=== PATIENT | male | born 1975 | race Caucasian/White ===

== ENCOUNTER 2018-09-15 11:27 | Emergency (ER) | payer OTHER, SELFPAY ==
[2018-09-15 11:36] VITALS: BP 163/103; PULSE 80; RESP 18; TEMP 36.8; O2SAT 98; BMI 27.5
--- NOTE | 2018-09-15 11:48 | ED.ABDPAIN ---
HPI - Abdominal Pain General Chief Complaint: Abdominal Pain Stated Complaint: right side abdominal pain Time Seen by Provider: 09/15/18 11:38 Source: patient Mode of arrival: ambulatory Limitations: no limitations History of Present Illness HPI narrative: 43-year-old nonsmoking, otherwise healthy male presents with chief complaint of sudden onset right flank pain yesterday. He denies any provocation or palliation. He denies any radiation. He denies dysuria, frequency or urgency. He denies any fever or chills. He denies nausea, vomiting or diarrhea. He denies any history of the same. He denies injury or any significant change in activity complaint: flank pain Onset (ago): day(s) Pain Consistency: constant Location: R flank Severity: mild Quality: stabbing Radiation: none Migration to: no migration Relieving factors: nothing Exacerbating factors: nothing Associated symptoms: denies other symptoms Related Data Previous Rx's Medication Instructions Recorded ketorolac 10 mg PO Q6H PRN #14 tab 09/15/18 Allergies Allergy/AdvReac Type Severity Reaction Status Date / Time From Vicodin Allergy Mild ITCHING Uncoded 09/15/18 11:38 Review of Systems Review of Systems All systems reviewed & are unremarkable except as noted in HPI and below Constitutional Denies chills, Denies fever(s), Denies lethargy and Denies weakness Eyes Denies change in vision, Denies eye discharge, Denies irritation and Denies loss of vision ENT Ears, Nose, Mouth, and Throat: Denies change in voice, Denies neck pain and Denies sore throat Cardiovascular Denies chest pain, Denies irregular heart rhythm, Denies lightheadedness, Denies palpitations, Denies dyspnea, Denies dyspnea on exertion and Denies orthopnea Respiratory Denies cough, Denies dyspnea, Denies dyspnea on exertion and Denies wheezing Gastrointestinal Gastrointestinal: Reports abdominal pain, Denies change in bowel habits, Denies diarrhea, Denies nausea and Denies vomiting Genitourinary Denies hematuria, Denies flank pain, Denies urinary incontinence and Denies urinary urgency Musculoskeletal Denies neck pain Integumentary/Breasts Denies pruritus, Denies erythema, Denies rash and Denies wounds Neurologic Denies confusion, Denies loss of vision and Denies weakness Psychiatric Denies anxiety, Denies confusion, Denies depression, Denies homicidal ideation and Denies suicidal ideation Endocrine Denies palpitations Hematologic/Lymphatic Denies easy bruising Allergic/Immunologic Denies wheezing PFSH Social History Smoking Status: Never smoker Exam Narrative Exam Narrative: 43-year-old male resting comfortably, in no obvious distress Initial Vital Signs Initial Vital Signs: Vital Signs Temperature 98.2 F 09/15/18 11:36 Pulse Rate 80 09/15/18 11:36 Respiratory Rate 18 09/15/18 11:36 Blood Pressure 163/103 H 09/15/18 11:36 Pulse Oximetry 98 09/15/18 11:36 Const General: cooperative and well developed Nutritional Appearance: well nourished Orientation: alert, awake, oriented x3 and not confused HENMT Head: normocephalic and atraumatic Ears: external ears normal and TM's normal bilaterally Nose: external nose normal and No nasal discharge Face and sinus: sinuses nontender, face symmetric, no sinus tenderness and No dry mucous membranes Mouth: oral mucosae normal and moist mucous membranes Teeth and gingiva: dentition normal Throat: tonsils normal and uvula midline Chest Chest: normal inspection of the chest Resp Effort & Inspection: normal respiratory effort, able to speak in complete sentences, no respiratory distress and no use of accessory muscles Auscultation: clear to auscultation bilaterally, no rales, no rhonchi and no wheezes GI Inspection: non-distended Palpation: soft, no hepatosplenomegaly, No guarding, No pulsatile mass and No tender Auscultation: normal bowel sounds Skin General: no rashes or lesions noted, No jaundice and No petechiae Course Orders Ordered: ED Orders 09/15/18 11:52 US renal complete Stat 09/15/18 12:02 Basic Metabolic Panel Stat Complete Blood Count AUTO DIFF Stat 09/15/18 12:35 XR acute abdomen series Stat Vital Signs - 8 hr 09/15/18 12:42 09/15/18 13:46 Pulse Rate 66 58 L Respiratory Rate 16 16 Blood Pressure 134/88 Blood Pressure [Left Arm] 131/85 Pulse Oximetry 99 98 MDM - Abdominal Pain Differential Diagnosis Differential diagnosis: Likely abdominal pain, acute appendicitis, calculus of kidney, constipation and diverticulitis Lab Data Attestation: I reviewed the patient's lab results. Result diagrams: 09/15/18 12:02 09/15/18 12:02 Lab Results 09/15/18 09/15/18 Range/Units 12:02 12:02 WBC 5.1 (4.5-11.0) X10^3/uL RBC 4.53 (4.5-5.9) X10^6/uL Hgb 13.9 (13.5-17.5) g/dL Hct 40.2 L (41-53) % MCV 88.7 (80-100) fL MCH 30.7 (26-34) PG MCHC 34.6 (30-36) % RDW 13.1 (11.6-14.8) % Plt Count 175 (150-400) X10^3/uL Neut % (Auto) 52.1 (50-75) % Lymph % (Auto) 33.2 (25-40) % [place] % (Auto) 8.0 (3-14) % Eos % (Auto) 5.5 H (2-4) % Baso % (Auto) 1.2 (0-2) % Neut # (Auto) 2600 L (4300-3502) /uL Sodium 141 (137-145) mmol/L Potassium 4.3 (3.4-5.1) mmol/L Chloride 103 (98-107) mmol/L Carbon Dioxide 26 (22-32) mmol/L BUN 16 (9-20) mg/dL Creatinine 1.00 (0.66-1.25) mg/dL Estimated GFR > 60.0 (>60) mL/min BUN/Creatinine Ratio 16.0 (6-22) Glucose 96 (70-100) mg/dL Calcium 9.4 (8.4-10.2) mg/dL Point of care testing: Urine Dip Bedside Urine Glucose Negative Bedside Urine Bilirubin - Negative Bedside Urine Ketone - Negative Urine Specific [place] 1.010 Bedside Urine Occult Blood - Negative Bedside Urine pH 7.0 Bedside Urine Protein - Negative Bedside Urine Urobilinogen - Negative Bedside Urine Nitrite - Negative Bedside Urine Leukocytes - Negative Esterase Imaging Data Renal US: Radiologist's impression: [address] [address] Ultrasound Report Signed Patient: Darrin Renner [facility]#: [id number] : 1975Acct:[id number] Age/Sex: 43 / MDate of Service: 09/15/18 Loc: ED Accession Number: [id number] Procedure: US renal complete Ordering Provider: Young Deal D.O. PROCEDURE: US RENAL COMPLETE INDICATIONS: RIGHT FLANK PAIN TECHNIQUE: Real-time scanning was performed of the kidneys and bladder, with image documentation. COMPARISON: None. FINDINGS: Kidneys: Kidneys are normal in size. Right kidney measures 12.6 cm long; left kidney measures 12.3 cm long. Right renal cortical thickness is 1.2 cm; left renal cortical thickness is 1.5 cm. Renal cortical echotexture is normal. No hydronephrosis or shadowing nephrolithiasis. No suspicious solid mass lesions. Bladder: Pre-void bladder volume is 2011 mL. Post-void residual is 0 mL. Pre-void images demonstrate no intraluminal masses or stones. On pre-void images, the left ureteral jet was noted with color Doppler interrogation. (Of note, ureteral jets may not be detectable in up to 25% of cases due to insufficient differences in specific gravity between ureteral and bladder urine). Miscellaneous: No free pelvic fluid. IMPRESSION: Unremarkable appearance of the kidneys. No hydronephrosis or shadowing renal calculi. Dictated by: Arben Owens M.D. on 09/15/2018 at 12:32 Approved by: Arbne Owens M.D. on 09/15/2018 at 12:33 Abdominal x-ray: Radiologist's impression: [place] [address] XRay Report Signed Patient: Darrin Renner [facility]#: [id number] : 1975Acct:[id number] Age/Sex: 43 / MDate of Service: 09/15/18 Loc: ED Accession Number: [id number] Procedure: XR acute abdomen series Ordering Provider: Young Deal D.O. PROCEDURE: XR ACUTE ABDOMEN SERIES INDICATIONS: Abdominal pain, R sided X1 DAY TECHNIQUE: One view chest and two views of the abdomen were acquired. COMPARISON: None. FINDINGS: Surgical changes and devices: None. Chest: Lungs are clear. Heart size is normal. No pleural effusions. No pneumoperitoneum. Abdomen: Bowel gas pattern is abnormal with moderate colonic obstipation. No suspicious calcifications. Visualized solid organ contours appear normal. Bones: No suspicious bony lesions. IMPRESSION: Moderate colonic obstipation, no sign of intestinal obstruction or perforation. Dictated by: Jl Walker M.D. on 09/15/2018 at 13:33 Approved by: Jl Walker M.D. on 09/15/2018 at 13:33 [facility] Narrative Medical decision making narrative: patient has a very benign exam and nonspecific history. Renal calculi initially thought most likely given sudden onset of pain and lack of provocation or palliation but urine showed no red cells and renal ultrasound demonstrated no hydronephrosis. Constipation considered a possibility especially after seeing x-ray however pain is not reproducible on exam. Labs were essentially unremarkable. We did discuss the possibility of a CT scan of abdomen and pelvis to further elucidate but elected to withhold this for now given the low likelihood of a changing the disposition. He was given return precautions which understands completely. He has had his questions answered to his apparent satisfaction Discharge Plan Departure Patient Disposition: Home Clinical Impression: Acute flank pain Discharge Date/Time: 09/15/18 13:47 Interventions: ED Discharge Assessment Last Done: 09/15/18 13:46 Instructions: DI for Flank Pain Activity Restrictions/Additional Instructions: *You have been diagnosed with [ Acute Flank pain, possible kidney stone ] *What to do: *Take medications as directed: Your prescription has been electronically transmitted to [facility] at your request *Follow up with your primary care provider in 2-3 days, call for an appointment. Let them know you were seen in the Emergency Department and that we ask that you be seen in follow up *Return to ER if you should have any new, worsening or concerning symptoms Prescriptions: New ketorolac 10 mg tablet 10 mg PO Q6H PRN (Reason: pain) Qty: 14 RF: 0 Referrals: Jose Courtney ARNP [Primary Care Provider] -
--- NOTE | 2018-09-15 11:52 | DI.US.S_ITS ---
PROCEDURE: US RENAL COMPLETE INDICATIONS: RIGHT FLANK PAIN TECHNIQUE: Real-time scanning was performed of the kidneys and bladder, with image documentation. COMPARISON: None. FINDINGS: Kidneys: Kidneys are normal in size. Right kidney measures 12.6 cm long; left kidney measures 12.3 cm long. Right renal cortical thickness is 1.2 cm; left renal cortical thickness is 1.5 cm. Renal cortical echotexture is normal. No hydronephrosis or shadowing nephrolithiasis. No suspicious solid mass lesions. Bladder: Pre-void bladder volume is 2011 mL. Post-void residual is 0 mL. Pre-void images demonstrate no intraluminal masses or stones. On pre-void images, the left ureteral jet was noted with color Doppler interrogation. (Of note, ureteral jets may not be detectable in up to 25% of cases due to insufficient differences in specific gravity between ureteral and bladder urine). Miscellaneous: No free pelvic fluid. IMPRESSION: Unremarkable appearance of the kidneys. No hydronephrosis or shadowing renal calculi. Dictated by: Arben Owens M.D. on 09/15/2018 at 12:32 Approved by: Arben Owens M.D. on 09/15/2018 at 12:33
[2018-09-15 12:10] LABS: Add Manual Diff / Slide Review NO; Basophils Percent Auto 1.2 % (0-2); Eosinophils Percent Auto 5.5 % (2-4); Hematocrit 40.2 % (41-53); Hemoglobin 13.9 g/dL (13.5-17.5); Lymphocytes Percent Auto 33.2 % (25-40); Mean Corpuscular HGB Conc 34.6 % (30-36); Mean Corpuscular Hemoglobin 30.7 PG (26-34); Mean Corpuscular Volume 88.7 fL (80-100); Neutrophils Absolute Auto 2600 /uL (3000-5900); Neutrophils Percent Auto 52.1 % (50-75); Platelet Count 175 X10^3/uL (150-400); Red Blood Cell Count 4.53 X10^6/uL (4.5-5.9); Red Cell Distribution Width 13.1 % (11.6-14.8); White Blood Cell Count 5.1 X10^3/uL (4.5-11.0)
[2018-09-15 12:19] LABS: Blood Urea Nitrogen 16 mg/dL (9-20); Calcium 9.4 mg/dL (8.4-10.2); Carbon Dioxide 26 mmol/L (22-32); Chloride 103 mmol/L (98-107); Estimated Glomerular Filt Rate > 60.0 mL/min (>60); Glucose 96 mg/dL (70-100); HEMOLYSIS < 15 (0-50); Potassium 4.3 mmol/L (3.4-5.1); Sodium 141 mmol/L (137-145)
--- NOTE | 2018-09-15 12:35 | DI.RAD.S_ITS ---
PROCEDURE: XR ACUTE ABDOMEN SERIES INDICATIONS: Abdominal pain, R sided X1 DAY TECHNIQUE: One view chest and two views of the abdomen were acquired. COMPARISON: None. FINDINGS: Surgical changes and devices: None. Chest: Lungs are clear. Heart size is normal. No pleural effusions. No pneumoperitoneum. Abdomen: Bowel gas pattern is abnormal with moderate colonic obstipation. No suspicious calcifications. Visualized solid organ contours appear normal. Bones: No suspicious bony lesions. IMPRESSION: Moderate colonic obstipation, no sign of intestinal obstruction or perforation. Dictated by: Jl Walker M.D. on 09/15/2018 at 13:33 Approved by: Jl Walker M.D. on 09/15/2018 at 13:33
[2018-09-15 12:42] VITALS: BP 131/85; PULSE 66; RESP 16; O2SAT 99
[2018-09-15 13:46] VITALS: BP 134/88; PULSE 58; RESP 16; O2SAT 98
--- NOTE | 2018-09-15 20:22 | ED_ITS ---
HPI - Abdominal Pain General Chief Complaint: Abdominal Pain Stated Complaint: right side abdominal pain Time Seen by Provider: 09/15/18 11:38 Source: patient Mode of arrival: ambulatory Limitations: no limitations History of Present Illness HPI narrative: 43-year-old nonsmoking, otherwise healthy male presents with chief complaint of sudden onset right flank pain yesterday. He denies any provocation or palliation. He denies any radiation. He denies dysuria, frequency or urgency. He denies any fever or chills. He denies nausea, vomiting or diarrhea. He denies any history of the same. He denies injury or any significant change in activity complaint: flank pain Onset (ago): day(s) Pain Consistency: constant Location: R flank Severity: mild Quality: stabbing Radiation: none Migration to: no migration Relieving factors: nothing Exacerbating factors: nothing Associated symptoms: denies other symptoms Related Data Previous Rx's Medication Instructions Recorded ketorolac 10 mg PO Q6H PRN #14 tab 09/15/18 Allergies Allergy/AdvReac Type Severity Reaction Status Date / Time From Vicodin Allergy Mild ITCHING Uncoded 09/15/18 11:38 Review of Systems Review of Systems All systems reviewed & are unremarkable except as noted in HPI and below Constitutional Denies chills, Denies fever(s), Denies lethargy and Denies weakness Eyes Denies change in vision, Denies eye discharge, Denies irritation and Denies loss of vision ENT Ears, Nose, Mouth, and Throat: Denies change in voice, Denies neck pain and Denies sore throat Cardiovascular Denies chest pain, Denies irregular heart rhythm, Denies lightheadedness, Denies palpitations, Denies dyspnea, Denies dyspnea on exertion and Denies orthopnea Respiratory Denies cough, Denies dyspnea, Denies dyspnea on exertion and Denies wheezing Gastrointestinal Gastrointestinal: Reports abdominal pain, Denies change in bowel habits, Denies diarrhea, Denies nausea and Denies vomiting Genitourinary Denies hematuria, Denies flank pain, Denies urinary incontinence and Denies urinary urgency Musculoskeletal Denies neck pain Integumentary/Breasts Denies pruritus, Denies erythema, Denies rash and Denies wounds Neurologic Denies confusion, Denies loss of vision and Denies weakness Psychiatric Denies anxiety, Denies confusion, Denies depression, Denies homicidal ideation and Denies suicidal ideation Endocrine Denies palpitations Hematologic/Lymphatic Denies easy bruising Allergic/Immunologic Denies wheezing PFSH Social History Smoking Status: Never smoker Exam Narrative Exam Narrative: 43-year-old male resting comfortably, in no obvious distress Initial Vital Signs Initial Vital Signs: Vital Signs Temperature 98.2 F 09/15/18 11:36 Pulse Rate 80 09/15/18 11:36 Respiratory Rate 18 09/15/18 11:36 Blood Pressure 163/103 H 09/15/18 11:36 Pulse Oximetry 98 09/15/18 11:36 Const General: cooperative and well developed Nutritional Appearance: well nourished Orientation: alert, awake, oriented x3 and not confused HENMT Head: normocephalic and atraumatic Ears: external ears normal and TM's normal bilaterally Nose: external nose normal and No nasal discharge Face and sinus: sinuses nontender, face symmetric, no sinus tenderness and No dry mucous membranes Mouth: oral mucosae normal and moist mucous membranes Teeth and gingiva: dentition normal Throat: tonsils normal and uvula midline Chest Chest: normal inspection of the chest Resp Effort & Inspection: normal respiratory effort, able to speak in complete sentences, no respiratory distress and no use of accessory muscles Auscultation: clear to auscultation bilaterally, no rales, no rhonchi and no wheezes GI Inspection: non-distended Palpation: soft, no hepatosplenomegaly, No guarding, No pulsatile mass and No tender Auscultation: normal bowel sounds Skin General: no rashes or lesions noted, No jaundice and No petechiae Course Orders Ordered: ED Orders 09/15/18 11:52 US renal complete Stat 09/15/18 12:02 Basic Metabolic Panel Stat Complete Blood Count AUTO DIFF Stat 09/15/18 12:35 XR acute abdomen series Stat Vital Signs - 8 hr 09/15/18 12:42 09/15/18 13:46 Pulse Rate 66 58 L Respiratory Rate 16 16 Blood Pressure 134/88 Blood Pressure [Left Arm] 131/85 Pulse Oximetry 99 98 MDM - Abdominal Pain Differential Diagnosis Differential diagnosis: Likely abdominal pain, acute appendicitis, calculus of kidney, constipation and diverticulitis Lab Data Attestation: I reviewed the patient's lab results. Result diagrams: 09/15/18 12:02 09/15/18 12:02 Lab Results 09/15/18 09/15/18 Range/Units 12:02 12:02 WBC 5.1 (4.5-11.0) X10^3/uL RBC 4.53 (4.5-5.9) X10^6/uL Hgb 13.9 (13.5-17.5) g/dL Hct 40.2 L (41-53) % MCV 88.7 (80-100) fL MCH 30.7 (26-34) PG MCHC 34.6 (30-36) % RDW 13.1 (11.6-14.8) % Plt Count 175 (150-400) X10^3/uL Neut % (Auto) 52.1 (50-75) % Lymph % (Auto) 33.2 (25-40) % [place] % (Auto) 8.0 (3-14) % Eos % (Auto) 5.5 H (2-4) % Baso % (Auto) 1.2 (0-2) % Neut # (Auto) 2600 L (0689-3518) /uL Sodium 141 (137-145) mmol/L Potassium 4.3 (3.4-5.1) mmol/L Chloride 103 (98-107) mmol/L Carbon Dioxide 26 (22-32) mmol/L BUN 16 (9-20) mg/dL Creatinine 1.00 (0.66-1.25) mg/dL Estimated GFR > 60.0 (>60) mL/min BUN/Creatinine Ratio 16.0 (6-22) Glucose 96 (70-100) mg/dL Calcium 9.4 (8.4-10.2) mg/dL Point of care testing: Urine Dip Bedside Urine Glucose Negative Bedside Urine Bilirubin - Negative Bedside Urine Ketone - Negative Urine Specific [place] 1.010 Bedside Urine Occult Blood - Negative Bedside Urine pH 7.0 Bedside Urine Protein - Negative Bedside Urine Urobilinogen - Negative Bedside Urine Nitrite - Negative Bedside Urine Leukocytes - Negative Esterase Imaging Data Renal US: Radiologist's impression: [address] [address] Ultrasound Report Signed Patient: Darrin Renner [facility]#: [id number] : 1975Acct:[id number] Age/Sex: 43 / MDate of Service: 09/15/18 Loc: ED Accession Number: [id number] Procedure: US renal complete Ordering Provider: Young Deal D.O. PROCEDURE: US RENAL COMPLETE INDICATIONS: RIGHT FLANK PAIN TECHNIQUE: Real-time scanning was performed of the kidneys and bladder, with image documentation. COMPARISON: None. FINDINGS: Kidneys: Kidneys are normal in size. Right kidney measures 12.6 cm long; left kidney measures 12.3 cm long. Right renal cortical thickness is 1.2 cm; left renal cortical thickness is 1.5 cm. Renal cortical echotexture is normal. No hydronephrosis or shadowing nephrolithiasis. No suspicious solid mass lesions. Bladder: Pre-void bladder volume is 2011 mL. Post-void residual is 0 mL. Pre- void images demonstrate no intraluminal masses or stones. On pre-void images, the left ureteral jet was noted with color Doppler interrogation. (Of note, ureteral jets may not be detectable in up to 25% of cases due to insufficient differences in specific gravity between ureteral and bladder urine). Miscellaneous: No free pelvic fluid. IMPRESSION: Unremarkable appearance of the kidneys. No hydronephrosis or shadowing renal calculi. Dictated by: Arben Owens M.D. on 09/15/2018 at 12:32 Approved by: Arben Owens M.D. on 09/15/2018 at 12:33 Abdominal x-ray: Radiologist's impression: [place] [address] XRay Report Signed Patient: Darrin Renner [facility]#: [id number] : 1975Acct:[id number] Age/Sex: 43 / MDate of Service: 09/15/18 Loc: ED Accession Number: [id number] Procedure: XR acute abdomen series Ordering Provider: Young Deal D.O. PROCEDURE: XR ACUTE ABDOMEN SERIES INDICATIONS: Abdominal pain, R sided X1 DAY TECHNIQUE: One view chest and two views of the abdomen were acquired. COMPARISON: None. FINDINGS: Surgical changes and devices: None. Chest: Lungs are clear. Heart size is normal. No pleural effusions. No pneumoperitoneum. Abdomen: Bowel gas pattern is abnormal with moderate colonic obstipation. No suspicious calcifications. Visualized solid organ contours appear normal. Bones: No suspicious bony lesions. IMPRESSION: Moderate colonic obstipation, no sign of intestinal obstruction or perforation. Dictated by: Jl Walker M.D. on 09/15/2018 at 13:33 Approved by: Jl Walker M.D. on 09/15/2018 at 13:33 [facility] Narrative Medical decision making narrative: patient has a very benign exam and nonspecific history. Renal calculi initially thought most likely given sudden onset of pain and lack of provocation or palliation but urine showed no red cells and renal ultrasound demonstrated no hydronephrosis. Constipation considered a possibility especially after seeing x-ray however pain is not reproducible on exam. Labs were essentially unremarkable. We did discuss the possibility of a CT scan of abdomen and pelvis to further elucidate but elected to withhold this for now given the low likelihood of a changing the disposition. He was given return precautions which understands completely. He has had his questions answered to his apparent satisfaction Discharge Plan Departure Patient Disposition: Home Clinical Impression: Acute flank pain Discharge Date/Time: 09/15/18 13:47 Interventions: ED Discharge Assessment Last Done: 09/15/18 13:46 Instructions: DI for Flank Pain Activity Restrictions/Additional Instructions: *You have been diagnosed with [ Acute Flank pain, possible kidney stone ] *What to do: *Take medications as directed: Your prescription has been electronically transmitted to [facility] at your request *Follow up with your primary care provider in 2-3 days, call for an appointment. Let them know you were seen in the Emergency Department and that we ask that you be seen in follow up *Return to ER if you should have any new, worsening or concerning symptoms Prescriptions: New ketorolac 10 mg tablet 10 mg PO Q6H PRN (Reason: pain) Qty: 14 RF: 0 Referrals: Jose Courtney ARNP [Primary Care Provider] -
== END 2018-09-15 13:47 | disposition home or self-care (01) ==
PROVIDERS: Emergency Provider Emergency Medicine; Family Provider Family Medicine; PCP Registered Nurse
DX: R10.9 Unspecified abdominal pain (principal)
CPT/HCPCS: 36415; 74022; 76770; 80048; 81003; 85025; 99283; 99284

== ENCOUNTER → 2019-05-13 13:03 | Outpatient (CLI) | payer OTHER, SELFPAY ==
[2019-05-13 14:39] LABS: Cholesterol 272 mg/dL (140-199); HDL Cholesterol 52 mg/dL (40-60); LDL Cholesterol Calculated 193 mg/dL (<100); Triglycerides 133 mg/dL (35-150); Uric Acid 6.4 mg/dL (3.5-8.5)
[2019-05-13 14:50] LABS: LDL Cholesterol Direct 166 mg/dL (<100)
== END ==
PROVIDERS: PCP Registered Nurse; Visit Provider Registered Nurse
DX: F98.8 Other specified behavioral and emotional disorders with onset usually occurring in childhood and adolescence (principal); R53.83 Other fatigue; M1A.9XX1 Chronic gout, unspecified, with tophus (tophi); E29.1 Testicular hypofunction
CPT/HCPCS: 36415; 80061; 83721; 84403; 84550

== ENCOUNTER → 2021-01-13 16:49 | Outpatient (CLI) | payer OTHER, SELFPAY ==
[2021-01-13] MEDS: COVID-19 VACC, Ad26(JANSSEN)/PF 0.5 ML IM (16:58)
== END ==
PROVIDERS: PCP Registered Nurse; Visit Provider Internal Medicine
DX: Z23 Encounter for immunization (principal)
CPT/HCPCS: 0031A; 91303

== ENCOUNTER → 2021-09-15 12:49 | Outpatient (CLI) | payer OTHER, SELFPAY ==
[2021-09-15] MEDS: COVID-19 VACC #3, MRNA(MOD) 50 MCG/0.25 ML VIAL IM (12:56)
== END ==
PROVIDERS: PCP Registered Nurse; Visit Provider Internal Medicine
DX: Z23 Encounter for immunization (principal)
CPT/HCPCS: 0013A; 91301

== ENCOUNTER → 2022-01-12 10:50 | Outpatient (CLI) | payer OTHER, SELFPAY ==
[2022-01-12 13:01] LABS: Hematocrit 40.1 % (41-53); Hemoglobin 13.5 g/dL (13.5-17.5); Mean Corpuscular HGB Conc 33.8 % (30-36); Mean Corpuscular Hemoglobin 29.6 PG (26-34); Mean Corpuscular Volume 87.7 fL (80-100); Platelet Count 188 X10^3/uL (150-400); Red Blood Cell Count 4.57 X10^6/uL (4.5-5.9); Red Cell Distribution Width 13.7 % (11.6-14.8); White Blood Cell Count 5.4 X10^3/uL (4.5-11.0)
[2022-01-12 14:20] LABS: Alanine Aminotransferase 33 IU/L (<50); Albumin 4.8 g/dL (3.5-5.0); Albumin Globulin Ratio 1.8 (1.0-2.8); Alkaline Phosphatase 43 U/L (38-126); Aspartate Aminotransferase 21 IU/L (17-59); BUN Creatinine Ratio 15.6 (6-22); Bilirubin Total 0.6 mg/dL (0.2-1.3); Blood Urea Nitrogen 14 mg/dL (9-20); Calcium 9.6 mg/dL (8.4-10.2); Carbon Dioxide 29 mmol/L (22-32); Chloride 102 mmol/L (98-107); Cholesterol 239 mg/dL (140-199); Estimated Glomerular Filt Rate > 60.0 mL/min (>60); Globulin 2.6 g/dL (1.7-4.1); Glucose 91 mg/dL (70-100); HDL Cholesterol 40 mg/dL (40-60); HEMOLYSIS < 15 (0-50); LDL Cholesterol Calculated 158 mg/dL (<100); Potassium 4.1 mmol/L (3.4-5.1); Sodium 137 mmol/L (137-145); Total Protein 7.4 g/dL (6.3-8.2); Triglycerides 204 mg/dL (35-150)
[2022-01-12 14:35] LABS: Free T3, Triiodothyronine Free 3.49 pg/mL (2.77-5.27); Free T4, Direct Thyroxine 1.25 ng/dL (0.78-2.19)
[2022-01-12 14:49] LABS: Thyroid Stimulating Hormone 0.315 uIU/mL (0.47-4.68)
[2022-01-12 17:03] LABS: Creatinine Urine Random 23.3 mg/dL
[2022-01-12 17:09] LABS: Microalbumin Urine Random < 0.6 mg/dL (0-1.6)
[2022-01-20 15:56] LABS: Percent Free Testosterone 3.41 % (1.50-4.20); Testosterone Free 4.99 ng/dL (5.00-21.00); Testosterone Total 146.2 ng/dL (264.0-916.0)
== END ==
PROVIDERS: PCP Nurse Practitioner; Referring Provider Nurse Practitioner; Visit Provider Nurse Practitioner
DX: Z00.00 Encounter for general adult medical examination without abnormal findings (principal); I10 Essential (primary) hypertension; N52.9 Male erectile dysfunction, unspecified
CPT/HCPCS: 36415; 80053; 80061; 82043; 82570; 84402; 84403; 84439; 84443; 84481; 85027

== ENCOUNTER → 2022-06-27 08:30 | Outpatient (CLI) | payer BC, SELFPAY ==
[2022-06-27 09:59] LABS: TSH w/ Reflex to FT4 0.52 uIU/mL (0.47-4.68)
== END ==
PROVIDERS: PCP Nurse Practitioner; Referring Provider Nurse Practitioner; Visit Provider Nurse Practitioner
DX: R79.89 Other specified abnormal findings of blood chemistry (principal)
CPT/HCPCS: 36415; 84443

== ENCOUNTER → 2023-04-23 06:58 | Outpatient (CLI) | payer BC, SELFPAY ==
[2023-04-23 07:51] LABS: Add Manual Diff / Slide Review NO; Basophils Absolute Auto 100 /uL (0-100); Basophils Percent Auto 0.9 % (0-2); Eosinophils Absolute Auto 900 /uL (0-450); Eosinophils Percent Auto 9.6 % (2-4); Lymphocytes Absolute Auto 2100 /uL (1100-4500); Lymphocytes Percent Auto 24.2 % (25-40); Mean Corpuscular HGB Conc 34.2 % (30-36); Mean Corpuscular Hemoglobin 30.5 PG (26-34); Mean Corpuscular Volume 89.2 fL (80-100); Monocytes Absolute Auto 600 /uL (0-900); Neutrophils Absolute Auto 5200 /uL (1500-7000); Neutrophils Percent Auto 58.3 % (50-75); Platelet Count 210 X10^3/uL (150-400); Red Blood Cell Count 4.59 X10^6/uL (4.5-5.9); Red Cell Distribution Width 13.2 % (11.6-14.8); White Blood Cell Count 8.9 X10^3/uL (4.5-11.0)
[2023-04-23 08:44] LABS: Alanine Aminotransferase 33 IU/L (<50); Albumin 4.6 g/dL (3.5-5.0); Albumin Globulin Ratio 1.8 (1.0-2.8); Alkaline Phosphatase 43 U/L (38-126); Aspartate Aminotransferase 27 IU/L (17-59); BUN Creatinine Ratio 14.5 (6-22); Bilirubin Total 0.5 mg/dL (0.2-1.3); Blood Urea Nitrogen 21 mg/dL (9-20); Calcium 9.6 mg/dL (8.4-10.2); Carbon Dioxide 29 mmol/L (22-32); Chloride 103 mmol/L (98-107); Cholesterol 208 mg/dL (140-199); Estimated Glomerular Filt Rate 59 mL/min (>60); Globulin 2.5 g/dL (1.7-4.1); Glucose 70 mg/dL (70-100); HDL Cholesterol 50 mg/dL (40-60); HEMOLYSIS < 15 (0-50); LDL Cholesterol Calculated 123 mg/dL (<100); Potassium 3.9 mmol/L (3.4-5.1); Sodium 139 mmol/L (137-145); Total Protein 7.1 g/dL (6.3-8.2); Triglycerides 175 mg/dL (35-150)
[2023-04-23 08:54] LABS: Free T4, Direct Thyroxine 1.18 ng/dL (0.78-2.19)
[2023-04-23 09:11] LABS: Prostate Specific Antigen 1.79 ng/mL (0.10-4.00)
[2023-04-23 09:35] LABS: HIV 1 & 2 Ab/Ag 4th Gen Combo NEGATIVE (NEGATIVE); Hep C Virus Ab w/Reflex Quant NEGATIVE s/c (NEGATIVE)
[2023-04-23 12:31] LABS: Microalbumin Urine Random < 0.6 mg/dL (0-1.6)
[2023-04-23 12:41] LABS: Creatinine Urine Random 132.1 mg/dL
[2023-04-28 08:11] LABS: Percent Free Testosterone 2.36 % (1.50-4.20); Testosterone Free 6.28 ng/dL (5.00-21.00); Testosterone Total 266.1 ng/dL (264.0-916.0)
== END ==
PROVIDERS: PCP Nurse Practitioner; Referring Provider Nurse Practitioner; Visit Provider Nurse Practitioner
DX: Z00.00 Encounter for general adult medical examination without abnormal findings (principal); Z11.4 Encounter for screening for human immunodeficiency virus [HIV]; Z11.59 Encounter for screening for other viral diseases; E29.1 Testicular hypofunction; F41.8 Other specified anxiety disorders; N52.9 Male erectile dysfunction, unspecified; R53.83 Other fatigue; Z79.899 Other long term (current) drug therapy
CPT/HCPCS: 36415; 80053; 80061; 82043; 82570; 84153; 84402; 84403; 84439; 84443; 84481; 85025; 86803; 87389

== ENCOUNTER → 2023-08-22 10:23 | Outpatient (CLI) | payer BC, SELFPAY | PROVIDERS: PCP Nurse Practitioner; Visit Provider Nurse Practitioner Family | DX: J02.9 Acute pharyngitis, unspecified (principal) | CPT/HCPCS: 87070 ==

== ENCOUNTER → 2023-09-16 10:54 | Outpatient (CLI) | payer BC, SELFPAY ==
[2023-09-16 13:06] LABS: Influenza A - CEPHEID Flu A NEGATIVE (NEGATIVE); Influenza B - CEPHEID Flu B NEGATIVE (NEGATIVE); Respiratory Syncytial Virus Negative (Negative)
[2023-09-16 13:15] LABS: COVID-19 CEPHEID 4-PLEX PCR Negative (Negative)
== END ==
PROVIDERS: PCP Nurse Practitioner; Visit Provider Family Medicine
DX: R05.9 Cough, unspecified (principal); J02.0 Streptococcal pharyngitis
CPT/HCPCS: 0241U; 87070

== ENCOUNTER → 2023-09-16 11:10 | Outpatient (CLI) | payer BC, SELFPAY ==
--- NOTE | 2023-09-16 11:14 | DI.RAD.S_ITS ---
PROCEDURE: XR CHEST 2V INDICATIONS: eval cough TECHNIQUE: 2 views of the chest were acquired. COMPARISON: [facility], , CHEST 2 VIEW, 01/28/2012, 11:47. FINDINGS: Surgical changes and devices: None. Lungs and pleura: Lungs are clear. No pleural effusions or pneumothorax. Mediastinum: Mediastinal contours are normal. Heart size is normal. Bones and chest wall: No suspicious bony abnormalities. Soft tissues appear unremarkable. IMPRESSION: No acute cardiopulmonary abnormality is seen. Dictated by: Rylee Perry M.D. on 09/16/2023 at 15:24 Approved by: Rylee Perry M.D. on 09/16/2023 at 15:25
== END ==
PROVIDERS: PCP Nurse Practitioner; Referring Provider Family Medicine; Visit Provider Family Medicine
DX: J02.0 Streptococcal pharyngitis (principal); J40 Bronchitis, not specified as acute or chronic; R05.9 Cough, unspecified
CPT/HCPCS: 0241U; 71046; 87070

== ENCOUNTER → 2024-04-02 09:34 | Outpatient (CLI) | payer BC, SELFPAY ==
[2024-04-02 10:00] LABS: Add Manual Diff / Slide Review NO; Basophils Absolute Auto 100 /uL (0-100); Basophils Percent Auto 0.8 % (0-2); Eosinophils Absolute Auto 300 /uL (0-450); Eosinophils Percent Auto 3.6 % (2-4); Hematocrit 41.5 % (41-53); Hemoglobin 14.1 g/dL (13.5-17.5); Lymphocytes Absolute Auto 2600 /uL (1100-4500); Lymphocytes Percent Auto 34.7 % (25-40); Mean Corpuscular Hemoglobin 30.6 PG (26-34); Mean Corpuscular Volume 90.1 fL (80-100); Monocytes Absolute Auto 600 /uL (0-900); Monocytes Percent Auto 8.2 % (3-14); Neutrophils Absolute Auto 3900 /uL (1500-7000); Neutrophils Percent Auto 52.7 % (50-75); Platelet Count 234 X10^3/uL (150-400); Red Blood Cell Count 4.61 X10^6/uL (4.5-5.9); White Blood Cell Count 7.4 X10^3/uL (4.5-11.0)
[2024-04-02 10:22] LABS: Alanine Aminotransferase 28 IU/L (<50); Albumin 4.9 g/dL (3.5-5.0); Alkaline Phosphatase 53 U/L (38-126); Aspartate Aminotransferase 27 IU/L (17-59); BUN Creatinine Ratio 16.8 (6-22); Bilirubin Total 0.6 mg/dL (0.2-1.3); Blood Urea Nitrogen 19 mg/dL (9-20); Calcium 9.6 mg/dL (8.4-10.2); Carbon Dioxide 29 mmol/L (22-32); Chloride 106 mmol/L (98-107); Estimated Glomerular Filt Rate > 60 mL/min (>60); Globulin 2.4 g/dL (1.7-4.1); Glucose 102 mg/dL (70-100); HEMOLYSIS < 15 (0-50); Potassium 4.6 mmol/L (3.4-5.1); Sodium 140 mmol/L (137-145); Total Protein 7.3 g/dL (6.3-8.2)
== END ==
PROVIDERS: PCP Nurse Practitioner; Referring Provider Nurse Practitioner; Visit Provider Nurse Practitioner
DX: E29.1 Testicular hypofunction (principal); N52.9 Male erectile dysfunction, unspecified; Z79.899 Other long term (current) drug therapy
CPT/HCPCS: 36415; 80053; 84402; 84403; 85025

== ENCOUNTER → 2024-05-26 07:15 | Outpatient (CLI) | payer BC, SELFPAY ==
[2024-05-26 09:16] LABS: Urine N gonorrhoeae NOT DETECTED
[2024-05-26 09:34] LABS: Urine Chlamydia NOT DETECTED
== END ==
PROVIDERS: PCP Nurse Practitioner; Visit Provider Physician Assistant Surgical
DX: A64 Unspecified sexually transmitted disease (principal)
CPT/HCPCS: 87491; 87591

== ENCOUNTER → 2024-05-26 07:55 | Outpatient (CLI) | payer BC, SELFPAY ==
[2024-05-26 10:42] LABS: Hepatitis B Surface Antigen NEGATIVE s/c (NEGATIVE)
[2024-05-26 10:54] LABS: HIV 1 & 2 Ab/Ag 4th Gen Combo NEGATIVE (NEGATIVE); Hep C Virus Ab w/Reflex Quant NEGATIVE s/c (NEGATIVE)
[2024-05-27 06:05] LABS: RPR Screen Non Reactive (Non Reactive)
[2024-05-27 08:11] LABS: HSV 2 IGG AB < 0.91 index (0.00-0.90); HSV1IGG > 62.20 index (0.00-0.90)
== END ==
PROVIDERS: PCP Nurse Practitioner; Referring Provider Physician Assistant Surgical; Visit Provider Physician Assistant Surgical
DX: Z20.2 Contact with and (suspected) exposure to infections with a predominantly sexual mode of transmission (principal); N50.89 Other specified disorders of the male genital organs; A64 Unspecified sexually transmitted disease
CPT/HCPCS: 36415; 86592; 86695; 86696; 86803; 87340; 87389; 87491; 87591